=== PATIENT | male | born 1995 | race Caucasian/White ===

== ENCOUNTER 2017-08-18 14:02 | Emergency (ER) | payer SELFPAY ==
[~2017-08-18] VITALS: Ht 180.3 cm; Wt 113.4 kg
[2017-08-18 14:44] LABS: BASO % 0.1 % (0.0-1.0); EOS # 0.1 10*3/uL (0.0-0.4); EOS % 0.5 % (1.0-4.0); HEMATOCRIT 49.4 % (42.0-52.0); HEMOGLOBIN 16.6 g/dl (14.0-18.0); LYMPH # 1.3 10*3/uL (1.3-4.4); LYMPH % 14.3 % (27.0-41.0); MEAN CELL VOLUME 92.5 fl (80.0-94.0); MEAN CORPUSCULAR HGB 31.1 pg (27.0-31.0); MEAN CORPUSCULAR HGB CONC 33.6 g/dl (33.0-37.0); MONO # 0.7 10*3/uL (0.1-1.0); MONO % 7.9 % (3.0-9.0); NEUT # 7.1 10*3/uL (2.3-7.9); NEUT % 76.9 % (47.0-73.0); PLATELET COUNT AUTOMATED 214 10*3/uL (130-400); RED BLOOD COUNT 5.34 10*6/uL (4.50-5.90); RED CELL DISTRI WIDTH 12.6 % (0-14.5); WHITE BLOOD COUNT 9.2 10*3/uL (4.8-10.8)
[2017-08-18 15:26] LABS: BUN 15 mg/dl (7-24); CHLORIDE 101 mmol/L (98-107); CREATININE 0.97 mg/dL (0.70-1.30); POTASSIUM 3.7 mmol/L (3.5-5.1); SODIUM 138 mmol/L (136-145)
[2017-08-18] MEDS ORDERED: ZOFRAN ODT4 MG SL (15:29)
[2017-08-18] MEDS ORDERED: OMNICEF300 MG PO (15:29)
== END 2017-08-18 15:41 | disposition home or self-care (01) ==
LOC: ED 14:02 → EDBD 14:15 → ED 15:41
PROVIDERS: Nurse Practitioner Family
DX: J02.0 Streptococcal pharyngitis (principal); R11.2 Nausea with vomiting, unspecified

== ENCOUNTER 2017-10-19 10:51 | Emergency (ER) | payer SELFPAY ==
[~2017-10-19] VITALS: Ht 182.8 cm; Wt 113.4 kg
[~2017-10-19 10:51] MED LIST: OMNICEF300 MG PO; ZOFRAN ODT4 MG SL
[2017-10-19 10:52] VITALS: BP 128/77
[2017-10-19] MEDS ORDERED: PREDNISONE10 MG PO (11:00)
== END 2017-10-19 11:20 | disposition home or self-care (01) ==
LOC: ED 10:51
DX: L23.7 Allergic contact dermatitis due to plants, except food (principal); R03.0 Elevated blood-pressure reading, without diagnosis of hypertension

== ENCOUNTER 2017-12-15 00:26 | Emergency (ER) | payer SELFPAY ==
[~2017-12-15] VITALS: Ht 182.8 cm; Wt 104.3 kg
[~2017-12-15 00:26] MED LIST changes: +PREDNISONE10 MG PO
[2017-12-15 00:28] VITALS: BP 127/83
[2017-12-15] MEDS ORDERED: AMOXICILLIN500 M3 PO (01:08)
== END 2017-12-15 01:19 | disposition home or self-care (01) ==
LOC: ED 00:26
DX: J02.9 Acute pharyngitis, unspecified (principal); R55 Syncope and collapse; R05 Cough; R09.81 Nasal congestion; Z91.040 Latex allergy status

== ENCOUNTER 2018-01-31 20:19 | Emergency (ER) | payer SELFPAY ==
[~2018-01-31] VITALS: Wt 106.6 kg
[~2018-01-31 20:19] MED LIST changes: +AMOXICILLIN500 M3 PO
[2018-01-31 20:20] VITALS: BP 120/79
== END 2018-01-31 20:32 | disposition home or self-care (01) ==
LOC: ED 20:19
DX: H11.31 Conjunctival hemorrhage, right eye (principal)

== ENCOUNTER 2020-10-15 15:07 | Emergency (ER) | payer OTHER ==
[~2020-10-15] VITALS: Ht 182.8 cm; Wt 124.7 kg
[2020-10-15 15:13] VITALS: BP 141/74
[2020-10-15] MEDS ORDERED: CEPHALEXIN500 M1 PO (16:23)
[2020-10-15] MEDS ORDERED: IBUPROFEN600 MG PO (16:23)
== END 2020-10-15 15:38 | disposition home or self-care (01) ==
LOC: ED 15:07
DX: L60.0 Ingrowing nail (principal); Z98.890 Other specified postprocedural states